=== PATIENT | male | born 1975 | race Caucasian/White ===

== ENCOUNTER 2016-12-26 23:45 | Emergency (ER) | payer BC ==
--- NOTE | ~2016-12-26 | ER ---
PATIENT'S NAME: RAVEN VASQUEZ [facility] AGE: 41 Y [address] ROOM: [place] [address] LOCATION: [facility] ADMIT DATE: 12/26/2016 ER/Outpatient Report DISCHARGE DATE: 12/27/2016 FAMILY PHYSICIAN: Physician, Unknown ATTENDING PHYSICIAN: Yovanny Montoya CHIEF COMPLAINT: Multiple but can be considered to be general malaise. 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 This evening around 10, he began to feel unusual with flushing in his left arm as well as some significant nausea which produced vomiting several times. Shortly after initiating vomiting, the patient fell blood coming from his right ear. He denies any trauma to it. He feels like he is a little bit under water since then on that side. He denies any dizziness associated with this, but just has not felt right otherwise. He denies any headache or vision changes. Not thunderclap in nature. The patient states that he has not been taking his lisinopril that he is supposed to be on at home because he ran out and he thought it was making his joints hurt. He has intention to return [place] tomorrow to be evaluated, but he was very concerned tonight. He did get his blood pressure taken [facility] and it was elevated for what he used to and thus he came in. PAST MEDICAL HISTORY: As documented on the record and have been reviewed by me. SOCIAL HISTORY: As documented on the record and have been reviewed by me. MEDICATIONS: As documented on the record and have been reviewed by me. ALLERGIES: DOCUMENTED ON THE RECORD AND HAVE BEEN REVIEWED BY ME. REVIEW OF SYSTEMS: All systems reviewed and negative except as noted in the HPI. PHYSICAL EXAMINATION: VITAL SIGNS: Vital signs on arrival, blood pressure 164/124, pulse 105, respiratory rate is 16, temperature 98.4, SpO2 is 96% on room air. Pain 0/10. GENERAL: Age-appropriate male. No obvious pain or distress, sitting upright on exam table, in good spirits. NEUROLOGIC: The patient is awake and alert. GCS is 15. No focal deficits. PATIENT'S NAME: RAVEN VASQUEZ [facility] AGE: 41 Y [address] ROOM: [place] [address] LOCATION: ED ADMIT DATE: 12/26/2016 ER/Outpatient Report DISCHARGE DATE: 12/27/2016 FAMILY PHYSICIAN: Physician, Unknown ATTENDING PHYSICIAN: Yovanny Montoya No asymmetry on exam. No speech impediments. No gait abnormalities. No cranial nerve deficits appreciated. HEENT: Normocephalic, atraumatic. The eyes are PERRL. The right canal is notable for blood. The right TM appears to be intact with appropriate cone of light, but the anterior inferior aspect was not visualized. No blood or other air-fluid levels behind the TM, no TM perforation visualized. Left TM is unremarkable. Oropharynx is clear. NECK: Supple. Trachea is midline. No adenopathy. CHEST: Heart is tachycardic with no murmurs. LUNGS: Clear to auscultation bilaterally. No rhonchi, wheezes, or rales. ABDOMEN: Soft, nontender, and nondistended. BACK: Back is normal to inspection and palpation. EXTREMITIES: Warm, well perfused without edema or deformity. SKIN: Warm, dry, and intact without diaphoresis or rash. LABORATORY DATA AND X-RAYS: Head CT unremarkable per Radiology. Chest x-ray is unremarkable per my read. EKG is notable for sinus tachycardia. No comparison available. Labs; lactate is 1.2. CBC without important abnormality. INR is 1. D-dimer is 0.28. CMS without abnormality. Troponin and CK-MB within normal limits. Free T4 1.0, TSH is 4.070. IMPRESSION: 1. General malaise with nausea and vomiting. 2. Bleeding in the right canal. 3. Hypothyroidism. 4. Essential hypertension. EMERGENCY DEPARTMENT COURSE: The patient was seen and evaluated as noted above. There is no evidence of intracranial hemorrhage. On physical exam, I do not see a perforated TM on the right. The patient likely ruptured blood vessel with his Valsalva and vomiting. He has had no symptoms in the emergency department. Blood pressure improved significantly with no intervention. His D-dimer is below detectable threshold as a cause for his tachycardia. Heart rate improved as well despite no intervention. His presentation is not consistent with ischemia at this time. Other than high blood pressure, he has no significant risk factors. Based on time, course, and presentation, I do not think a second set of enzymes will be useful for this patient. He will be discharged back to the hot with his . He has plans to return to [place] in the morning. I recommend that he start his home antihypertensives as directed. PATIENT'S NAME: RAVEN VASQUEZ [facility] AGE: 41 Y [address] ROOM: [place] [address] LOCATION: [facility] ADMIT DATE: 12/26/2016 ER/Outpatient Report DISCHARGE DATE: 12/27/2016 FAMILY PHYSICIAN: Physician, Unknown ATTENDING PHYSICIAN: Yovanny Montoya MD JH/johan /[id number] d: 12/27/16 1206 t: 01/02/17 0951, OUTPATIENT REPORT
[2016-12-27 01:44] LABS: BASOPHIL # 0.1 K/uL (0.0-0.2); BASOPHIL % 0.7 %; EOSINOPHIL # 0.4 K/uL (0.0-0.5); EOSINOPHIL % 3.6 %; IMMATURE GRANULOCYTE # 0.1 K/uL (0.0-0.3); IMMATURE GRANULOCYTE % 0.5 %; LYMPHOCYTE # 3.2 K/uL (0.8-4.0); LYMPHOCYTE % 32.8 %; MCHC 34.1 gm/dL (32.0-36.5); MCV 90.9 fl (83.0-98.0); MONOCYTE # 0.8 K/uL (0.0-1.0); MONOCYTE % 7.9 %; MPV 9.4 fl (9.4-12.4); NEUTROPHIL # (ANC) 5.3 K/uL (1.4-9.0); NEUTROPHIL % 54.5 %; NRBC % 0 /100WBC (0-0.00); PLATELET COUNT 306 K/uL (150-450); RBC 4.84 M/uL (4.00-6.00); RDW-CV 12.3 % (11.9-14.6); WBC 9.7 K/uL (4.0-11.0)
[2016-12-27 01:55] LABS: PROTIME 10.5 SECONDS (9.8-11.4); PTT 26 SECONDS (25-32)
[2016-12-27 02:07] LABS: ALBUMIN 3.9 gm/dL (3.5-5.0); ALK PHOS 73 IU/L (33-138); ALT 28 IU/L (12-78); AST 17 IU/L (10-40); BLOOD UREA NITROGEN 12 mg/dL (6-24); CALCIUM 9.2 mg/dL (8.5-10.5); CHLORIDE 107 mMol/L (96-110); CO2 26 mMol/L (22-32); CREATININE 0.9 mg/dL (0.6-1.3); ESTIMATED GFR (MDRD EQUATION) > 60; SODIUM 142 mMol/L (135-145); TOTAL BILIRUBIN 0.3 mg/dL (0.0-1.5); TOTAL PROTEIN 7.6 g/dL (6.0-8.4)
== END 2016-12-27 02:58 | disposition disaster alternative care site (69) ==
LOC: GMED 23:45
PROVIDERS: Emergency Medicine
DX: R53.81 Other malaise (principal); R11.2 Nausea with vomiting, unspecified; H92.21 Otorrhagia, right ear; I10 Essential (primary) hypertension; E03.9 Hypothyroidism, unspecified; Z88.0 Allergy status to penicillin; Z88.1 Allergy status to other antibiotic agents; Z88.8 Allergy status to other drugs, medicaments and biological substances; Z79.82 Long term (current) use of aspirin; Z79.899 Other long term (current) drug therapy